=== PATIENT | male | born 1960 | race Caucasian/White ===

== ENCOUNTER 2017-08-29 09:20 | Emergency (ER) | payer BC ==
[2017-08-29] MEDS ORDERED: NITROGLYCERIN 0.4 MG TAB SL PRN (09:23)
[2017-08-29] MEDS ORDERED: SODIUM CHLORIDE 0.9% FLUSH 10 ML SOL IV PRN (09:23)
[2017-08-29 09:35] LABS: BASOPHILS % (AUTO) 0 % (0-3); EOSINOPHILS % (AUTO) 3 % (0-9); HEMATOCRIT 43 % (39-53); MEAN CORPUSCULAR HGB CONC 33.8 gm/dl (32.0-36.0); MEAN CORPUSCULAR VOLUME 88 fL (80-100); MONOCYTES % (AUTO) 10.3 % (0-12)
[2017-08-29 09:37] VITALS: TEMP 99.1
[2017-08-29 09:56] LABS: CALCIUM 8.7 mg/dl (8.5-10.1); GLOM FILT RATE 69 mL/min (>60); POTASSIUM 3.6 mMol/L (3.5-5.1); SODIUM 138 mMol/L (136-145)
[2017-08-29 10:40] VITALS: BP 109/76; PULSE 77; RESP 18; O2SAT 96
== END 2017-08-29 10:34 | disposition home or self-care (01) ==
LOC: ED 09:20
DX: R07.9 Chest pain, unspecified (principal)
CPT/HCPCS: 36415; 71010; 80048; 82550; 84484; 85025; 85610; 85730; 93005; 99284

== ENCOUNTER 2018-02-16 07:29 | Day surgery (SDC) | payer BC ==
[2018-02-16] MEDS ORDERED: LIDOCAINE HCL 1% MPF SOL ONE (07:30)
[2018-02-16] MEDS ORDERED: PROPOFOL 500 MG/50 ML EMU IV ONE (07:30)
[2018-02-16 09:33] VITALS: BP 119/84; PULSE 61; RESP 18; TEMP 97.4; O2SAT 96
== END 2018-02-16 09:55 | disposition home or self-care (01) ==
LOC: SURG 07:29
PROVIDERS: ATTEND Surgery
DX: Z12.11 Encounter for screening for malignant neoplasm of colon (principal); R10.32 Left lower quadrant pain
CPT/HCPCS: J2001; J2704

== ENCOUNTER 2019-02-11 16:20 | Emergency (ER) | payer BC ==
[2019-02-11 16:58] VITALS: O2SAT 96
[2019-02-11] MEDS ORDERED: APAP/HYDROCODONE 1 EACH TABLET PO ONE (17:03)
[2019-02-11] MEDS ORDERED: APAP/HYDROCODONE 1 EACH TABLET ONE (17:04)
[2019-02-11 17:11] VITALS: RESP 20; TEMP 97.2
[2019-02-11 18:20] VITALS: BP 125/74; PULSE 81
== END 2019-02-11 17:40 | disposition home or self-care (01) ==
LOC: ED 16:20
DX: S22.32XA Fracture of one rib, left side, initial encounter for closed fracture (principal); W00.9XXA Unspecified fall due to ice and snow, initial encounter
CPT/HCPCS: 71101; 99283; A9270-GY